=== PATIENT | female | born 1955 | race Caucasian/White ===

== ENCOUNTER → 2017-10-20 | Outpatient (CLI) | payer BC | LOC: CIMAGING 13:50 | PROVIDERS: ATTEND Radiology Diagnostic Radiology | DX: Z01.818 Encounter for other preprocedural examination (principal) | CPT/HCPCS: 70200-PO ==

== ENCOUNTER → 2017-12-02 | Outpatient (CLI) | payer BC | LOC: FIMAGING 10:21 | PROVIDERS: ATTEND Internal Medicine | DX: K76.0 Fatty (change of) liver, not elsewhere classified (principal); K83.8 Other specified diseases of biliary tract; M51.36 Other intervertebral disc degeneration, lumbar region ==

== ENCOUNTER 2017-12-21 07:30 | Inpatient (IN) | payer BC, OTHER ==
--- NOTE | 2017-12-21 06:42 | PDHPUP ---
History & Physical Update H&P update statement: This history and physical update is based on an assessment of the patient which was completed after admission or registration (within 24 hours), but prior to the surgery/procedure. H&P update: H&P reviewed & patient examined, no change in patient's condition since H&P completed
[2017-12-21] MEDS ORDERED: ACETAMINOPHEN 500 MG TAB PO ONE (10:25)
[2017-12-21] MEDS ORDERED: ceFAZolin 2 GM/SWFI 2 GM/20 ML SYR IVP ONE (10:25)
[2017-12-21] MEDS ORDERED: GABAPENTIN 300 MG CAP PO ONE (10:25)
[2017-12-21] MEDS ORDERED: LR 1,000 ML IV ONE (10:32)
[2017-12-21] MEDS ORDERED: LIDOCAINE 1% 2 ML INJ ID PRN (10:32)
[2017-12-21] MEDS ORDERED: BACITRACIN 50,000 UNITS/10 ML SYR IRR ONE (11:26)
[2017-12-21] MEDS ORDERED: THROMBIN (BOVINE) 5,000 UNIT VIAL TP ONE (11:26)
[2017-12-21] MEDS ORDERED: BUPIVACAINE 0.25% 30 ML SDV ONE (11:26)
--- NOTE | 2017-12-21 11:31 | PDANEPAE ---
ANE History of Present Illness Chronic back pain with lumbar stenosis. ANE Past Medical History - Cardiovascular History Hx Hypertension: No Hx Arrhythmias: No Hx Chest Pain: No Hx Coronary Artery / Peripheral Vascular Disease: No Hx CHF / Valvular Disease: No Hx Palpitations: No Cardiovascular History Comment: hyperlipidemia - Pulmonary History Hx COPD: No Hx Asthma/Reactive Airway Disease: No Hx Recent Upper Respiratory Infection: No Hx Oxygen in Use at Home: No Hx Sleep Apnea: No Sleep Apnea Screening Result - Last Documented: Negative Pulmonary History Comment: negative sleep study 2015 - Neurologic History Hx Cerebrovascular Accident: No Hx Seizures: No Hx Dementia: No - Endocrine History Endocrine History Comment: hypothyroid - Renal History Hx Renal Disorders: No - Liver History Hx Hepatic Disorders: Yes Hepatic History Comment: elevated liver enzymes - Neurological & Psychiatric Hx Hx Neurological and Psychiatric Disorders: Yes Neurological / Psychiatric History Comment: anxiety, bi-polar,depression,PTSD - Cancer History Hx Cancer: Yes Cancer History Comment: skin ca SQ squamous cell - Congenital Disorder History Hx Congenital Disorders: No - GI History Hx Gastrointestinal Disorders: No Gastrointestinal History Comment: ulcers, spastic colon - Other Health History Other Health History: chronic pain, degenerative disc disease - Chronic Pain History Chronic Pain: Yes - Surgical History Prior Surgeries: appendectomy,. cholecystectomy. . right shoulder arthroscopy. left menisectomy. hemorroidectomy ANE Review of Systems Review of Systems: - Exercise capacity METS (RN): 4 METS ANE Patient History - Allergies Allergies/Adverse Reactions: morphine Allergy (Verified 11/29/17 15:54) Nausea Penicillins Allergy (Verified 11/29/17 15:54) Rash - Home Medications Home Medications: Aspirin EC [Aspirin EC 81 mg (*)] 81 mg PO DAILY 11/29/17 [Last Taken 12/14/17] Atorvastatin Calcium [Lipitor 10 mg (*)] 10 mg PO DAILY 11/29/17 [Last Taken 06:00] Levothyroxine [Synthroid 50 mcg (*)] 50 mcg PO DAILY06 11/29/17 [Last Taken 06:00] Multivitamins [Multivitamin (*)] 1 each PO DAILY 11/29/17 [Last Taken 12/14/17] OLANZapine [Zyprexa] 5 mg PO DAILY 11/29/17 [Last Taken 12/21/17 06:00] PARoxetine HCL [Paxil 30mg (*)] 30 mg PO DAILY 11/29/17 [Last Taken 12/21/17 06: 00] clonazePAM [Klonopin] 2 mg PO DAILY 11/29/17 [Last Taken 12/21/17 06:00] lamoTRIgine [Lamictal] 75 mg PO DAILY 11/29/17 [Last Taken 12/21/17 06:00] oxyCODONE IR [Oxycodone Ir (*)] 30 mg PO DAILY 11/29/17 [Last Taken 12/21/17 06: 00] - NPO status NPO Since - Liquids (Date): 12/21/17 NPO Since - Liquids (Time): 06:00 NPO Since - Solids (Date): 12/20/17 NPO Since - Solids (Time): 18:00 - Smoking Hx Smoking Status: Current every day smoker - Family Anes Hx Family Hx Anesthesia Complications: none ANE Labs/Vital Signs - Vital Signs Blood Pressure: 114/64 Heart Rate: 69 Respiratory Rate: 16 O2 Sat (%): 89 Height: 162.56 cm Weight: 70.307 kg ANE Physical Exam - Airway Neck exam: FROM Mallampati Score: Class 3 Mouth exam: normal dental/mouth exam - Pulmonary Pulmonary: no respiratory distress - Cardiovascular Cardiovascular: regular rate and rhythym - ASA Status ASA Status: III ANE Anesthesia Plan Anesthesia Plan: general endotracheal anesthesia
[2017-12-21] MEDS ORDERED: MIDAZOLAM 2 MG/2 ML VIAL IVP ONE (11:32)
[2017-12-21] MEDS ORDERED: MAGNESIUM HYDROXIDE 30 ML UDCUP PO PRN (11:34)
[2017-12-21] MEDS ORDERED: ONDANSETRON 4 MG/2 ML VIAL IVP PRN ×2 (11:34→17:02)
[2017-12-21] MEDS ORDERED: BISACODYL 10 MG SUPP PR PRN (11:34)
[2017-12-21] MEDS ORDERED: HYDROmorphONE/DILAUDID 1 MG/ML INJ IVP PRN (11:34)
[2017-12-21] MEDS ORDERED: ONDANSETRON DISINTEGRATING 4 MG TAB PO PRN (11:34)
[2017-12-21] MEDS ORDERED: LACTULOSE 20 GM/30 ML UDCUP PO PRN (11:34)
[2017-12-21] MEDS ORDERED: NALOXONE HCL 0.4 MG/ML INJ IVP PRN ×3 (11:34→17:42)
[2017-12-21] MEDS ORDERED: HYDROmorphONE/DILAUDID 6 MG/30 ML PCA IV PRN (11:34)
[2017-12-21] MEDS ORDERED: diphenhydrAMINE 25 MG CAP PO PRN (11:34)
[2017-12-21] MEDS ORDERED: HYDROmorphONE/DILAUDID 2 MG/ML INJ ONE ×2 (11:37→17:35)
[2017-12-21] MEDS ORDERED: REMIFENTANIL HCL 1 MG VIAL ONE ×2 (11:37→14:36)
[2017-12-21] MEDS ORDERED: PROPOFOL 200 MG/20 ML VIAL ONE ×2 (11:38→16:25)
[2017-12-21] MEDS ORDERED: PROPOFOL/EMULSION 500 MG/50 ML BOTTLE IV ONE ×2 (11:38→14:36)
[2017-12-21] MEDS ORDERED: LIDOCAINE 2% 5 ML SDV ONE (11:39)
[2017-12-21] MEDS ORDERED: NS W/ 20 KCl/L 1,000 ML IV SCH (11:45)
[2017-12-21] MEDS ORDERED: fentaNYL 100 MCG/2 ML INJ ONE ×3 (11:48→19:28)
[2017-12-21] MEDS ORDERED: ONDANSETRON 4 MG/2 ML VIAL ONE (12:49)
[2017-12-21] MEDS ORDERED: DEXAMETHASONE 4 MG/ML VIAL ONE (12:49)
[2017-12-21] MEDS ORDERED: PHENYLEPHRINE HCL 100 MCG/ML SYR ONE (12:55)
--- NOTE | 2017-12-21 13:08 | PDMN ---
Medical Necessity Medical necessity: S820 lumbar fusion 3 days - INPT only list : TLIF L4/5,L5 /S1
[2017-12-21] MEDS ORDERED: ceFAZolin 2 GM/DEXTROSE 100 ML IV SCH (14:00)
[2017-12-21] MEDS ORDERED: ceFAZolin 1 GM VIAL ONE ×2 (16:20)
[2017-12-21] MEDS ORDERED: PROMETHAZINE HCL 25 MG/ML INJ IVP PRN (17:02)
--- NOTE | 2017-12-21 17:08 | SOAPPROG ---
SOAP Progress Note Assessment/Plan: Post Op Visit: S: Awake and alert. Pt with expected lower back pain O: AFVSS/PERRLA/EOMI no droop CN 2-12 grossly intact +lt touch 5/5 BUE/BLE = CDI MARIAH in place A/P: 62 yo female that is s/p TLIF at L4/5 and L5/S1 -orders in place -awake and alert -brace when out of bed -[employer] -pt seen by Dr Torres -call with any questions or concerns 12/21/17 17:05 Objective: Vital Signs Temp Pulse Resp BP Pulse Ox 37 C 69 16 114/64 89 L 12/21/17 11:04 12/21/17 11:54 12/21/17 11:54 12/21/17 11:54 12/21/17 11:54 ICD10 Worksheet Patient Problems: Problems Problem Status Onset Arthrodesis status Acute Lumbago Acute Lumbar radicular pain Acute Lumbar stenosis Acute - ICD10 Problem Qualifiers (1) Lumbar stenosis (2) Lumbar radicular pain (3) Lumbago (4) Arthrodesis status
--- NOTE | 2017-12-21 17:35 | POSTANESTH ---
Post Anesthetic Evaluation Cardiovascular Status: Normal, Stable Respiratory Status: Normal, Stable Level of Consciousness/Mental Status: Can Participate in Eval Pain Control: Inadeq, Add Tx Required (giving fentanyl and dilaudid) Nausea/Vomiting Control: Adequate, Prn Tx Ordered Complications Possibly Related to Anesthesia: None Noted
[2017-12-21] MEDS: fentaNYL 100 MCG/2 ML INJ IVP PRN ×5 (17:36→21:45)
[2017-12-21] MEDS: HYDROmorphONE/DILAUDID 2 MG/ML INJ IVP PRN ×2 (17:38→17:48)
[2017-12-21] MEDS ORDERED: DIAZEPAM 5 MG/ML 1 ML SYR IVP PRN ×2 (17:42→18:35)
--- NOTE | 2017-12-21 18:12 | GOP ---
[f rep st] OPERATIVE REPORT DATE OF OPERATION: 12/21/2017 SURGEON: Gaston Torres MD MANAGER OF LEARNING: Kyle Velazquez PA-C. PREOPERATIVE DIAGNOSIS: 1. Lumbar spondylosis with severe disk degenerative disease L4-5, L5-S1. 2. Bilateral lumbosacral radiculopathy with left greater than right pain. 3. Severe left foraminal stenosis L5-S1. 4. Severe right foraminal stenosis, L4-5. 5. Bilateral recess stenosis, L4-5. POSTOPERATIVE DIAGNOSIS: 1. Lumbar spondylosis with severe disk degenerative disease L4-5, L5-S1. 2. Bilateral lumbosacral radiculopathy with left greater than right pain. 3. Severe left foraminal stenosis L5-S1. 4. Severe right foraminal stenosis, L4-5. 5. Bilateral recess stenosis, L4-5. PROCEDURE PERFORMED: Posterior lateral and intervertebral arthrodesis, L4-5, L5-S1 (12466, 21152); p lacement of biomechanical intervertebral device, L4-5, L5-S1 (91541 x2); spinal stereotaxy; posterior segmental instrumentation L4, L5, S1; same incision bone graft harvest; microscope. FINDINGS: ESTIMATED BLOOD LOSS: 400 cc. INDICATIONS: The patient is a middle-aged woman who has a long history of problems in her lower back and radiating pain in the leg whose MRI of the lumbar spine demonstrated really remarkable left-side d foraminal stenosis at L5-S1 and right-sided foraminal stenosis at L4-5 with bilateral recess stenos is at L4-5. There are terrible Modic changes in the L4-5, L5-S1 endplates and even sclerosis through out the L4 vertebral body. I suggested a 2-level fusion. I felt the fusion was necessary because of the need to remove the facet joints at L4-5 and L5-S1 to elevate and decompress the exiting nerve ro ot as well as the desire to elevate the intervertebral spaces at those levels to open the foramen for the exiting nerves. The risk of screw and hardware malposition was discussed. She knew there was a risk of pseudoarthrosis, adjacent segment disease, additional spine surgery in the future. She knew there was a chance that surgery would fail to give her any relief and that the likelihood of improve ment of leg symptoms is greater than the likelihood of improvement of low back pain, but it is my hop e that we could achieve some results with both. She knew there was risk of CSF leak and nerve injury , and she wanted to proceed despite these risks. DESCRIPTION OF PROCEDURE: The patient was taken to the operating room, placed in the supine position . General anesthesia was begun. She was flipped prone onto the Marshall table. Care was taken to pa d all points of contact. Her back was sterilely prepped and draped in the usual fashion. We made a 7 cm incision above the L4-5 and L5-S1 interspaces. The subcutaneous tissue was dissected using Bovi e cautery down to the fascia. A subperiosteal dissection was made down the inferior L3 lamina. The L4,L5, S1 lamina was exposed. We shot a localizing x-ray. We denuded the hypertrophic L4-5, L5-S1 f acets. We attached the Stealth reference frame to the L5 spinous process, performed an O-arm spin an d using frameless Stealth stereotaxy, we placed pedicle screws bilaterally at S1. They were bicortic al. 30 mm screws were used at this level. We put 35 mm screws at S1. At L5, there was terrible scl erosis of the vertebral body itself, and it was extremely hard, sort of cortical bone, and in this co ntext, I chose to use a pedicle finder to make the charter pilot holes, which were then tapped with the power tap into the L5 vertebral body, and I selected shorter screws for this level because I saw no need t o continue advancing through the very hard cortical bone ventrally. We did choose 30 mm screws, and there was excellent bony purchase. At L4, we were able to use 6.5 x 40 mm screws. We performed an O -arm spin, and all the hardware was in excellent position. There was no evidence of breach of the pe dicle either inferiorly, medially or laterally or rostrally. They all stimulated at acceptable level s. We took 60 mm rods, placed them down over the tulips of the screws, distracted on the right at L4 -5 and on the left at L5-S1 and locked them in place. An x-ray was taken. I was very happy with red uction of the degenerative scoliosis and degenerative tilt at each level. We then harvested the L5 s pinous process and the inferior most portion of the L4 spinous process. We preserved the L3-4 inters pinous and supraspinous ligament. We then performed a complete left-sided facetectomy at L5-S1, a ri ght facetectomy at L4-5. We performed bilateral decompressions at L4-5. We then turned our attentio n under the microscope to the left L5-S1 foramen where we identified the traversing S1 root and the e xiting L5 root. We decompressed this completely on the left-hand side and worked our way up adjacent to the L5 pedicle into the lateral recess on the left side at L4-5 where there was indeed severe yanique nosis for the traversing L5 root at that level. On the right-hand side, we did likewise, identified the exiting L4 nerve and completely decompressing it by removing the complete facet joint on the righ t side. We swept the S1 nerve from the left-hand side medially, incised the L5-S1 disk, removed the disk and the cartilaginous endplates. We roughened the subchondral bone to create arthrodesis. We d id likewise from the right side at L4-5 where we incised the disk, removed the disk from the cartilag inous endplates. We inserted the trial device for the elevate cages at both levels, shot an x-ray. Looked at the length that we wanted to choose, and I thought a 23 mm device would be appropriate. We chose 7 x 23 mm devices in each location. We placed bone morphogenic protein. 4.0 mg were used dur ing the surgery. Of this, 3 mg went into the disk spaces at L4-5, L5-S1, with about 1.5 mg in each d isk space and bone autograft. We inserted each of the devices under fluoroscopic guidance and then e xpanded them and checked their positioning with fluoroscopy. I was very happy with the elevation of the vertebral bodies as well as the slight introduction of lordosis at L4-5, 5-1 where there was none prior. We decorticated all the posterolateral bone bilaterally to create arthrodesis and placed the remaining bone autograft that was harvested from the laminectomy as well as the BMP posterolaterally . A subfascial drain was placed. We then closed the incision in multiple layers using Vicryl suture . Steri-Strips were applied to the skin. The patient was reversed from anesthesia, extubated, and t ransferred to the recovery room in stable condition. COMPLICATIONS: None. INSTRUMENTATION USE: We set using Medtronic Solara 5.5 mm system with a 60 mm titanium harrison bilateral ly. We used 40 mm screws at 4, 30 mm screws at 5, 35 mm screws at S1. These were chosen based upon intraoperative 3D imaging. /[id number]/MODL
[2017-12-21] MEDS ORDERED: DIAZEPAM 5 MG/ML 1 ML SYR ONE (18:19)
[2017-12-21] MEDS ORDERED: oxyCODONE IR 5 MG TAB ONE ×2 (18:58→19:28)
[2017-12-21] MEDS: oxyCODONE IR 5 MG TAB PO PRN ×3 (18:59→23:50)
[2017-12-21] MEDS: ACETAMINOPHEN 500 MG TAB PO SCH ×2 (22:09→22:27)
[2017-12-21] MEDS: HYDROCODONE/APAP 5/325 TAB PO PRN (22:26)
[2017-12-21] MEDS: SENNOSIDES/DOCUSATE SODIUM TAB PO SCH (22:27)
[2017-12-21] MEDS: FAMOTIDINE 20 MG TAB PO SCH (22:27)
[2017-12-21] MEDS: GABAPENTIN 300 MG CAP PO SCH ×2 (22:27)
[2017-12-21] MEDS: ceFAZolin 2 GM/SWFI 2 GM/20 ML SYR IVP SCH (23:49)
[2017-12-21] MEDS: METHOCARBAMOL 750 MG TAB PO PRN (23:52)
[2017-12-22] MEDS: HYDROCODONE/APAP 5/325 TAB PO PRN (03:39)
[2017-12-22] MEDS: oxyCODONE IR 5 MG TAB PO PRN ×4 (03:47→21:17)
[2017-12-22 04:56] LABS: PLATELET COUNT 79 10^3/uL (150-400)
[2017-12-22] MEDS: LEVOTHYROXINE 50 MCG TAB PO SCH (05:18)
[2017-12-22] MEDS: ACETAMINOPHEN 500 MG TAB PO SCH ×3 (05:19→21:16)
[2017-12-22] MEDS: GABAPENTIN 300 MG CAP PO SCH ×3 (05:20→21:17)
[2017-12-22] MEDS: ceFAZolin 2 GM/SWFI 2 GM/20 ML SYR IVP SCH (05:25)
[2017-12-22 05:50] LABS: PLATELET COUNT 104 10^3/uL (150-400)
--- NOTE | 2017-12-22 08:07 | NEUSURGPN ---
Date of Surgery: 12/21/17 Post Op Day: 1 Assessment/Plan: Assessment: 62 yo female that is s/p TLIF at L4/5 and L5/S1 POD #1 Plan: -s/p TLIF at L4/5 and L5/S1: pt with expected lower back pain, legs feel better -post op xrays pending -brace when out of bed -PT/OT ordered -working on pain management -MARIAH in place -pt understands and agrees -pt is floor status-awaiting 3N bed -pt seen by Dr Torres -call with any questions or concerns Subjective: Awake and alert. NAD. Eating/drinking and voiding. No f/c/n/v/d. Objective: AFVSS/PERRLA/EOMI no droop CN 2-12 grossly intact +lt touch 5/5 BUE/BLE = CDI MARIAH in place Neuro Check Frequency: per routine Urinary Catheter in Place: No Catheter Insertion Date: 12/21/17 - Physician Discussed Patient with : Brian Patient Seen by : Brian Neurosurgery Physical Exam - Vitals, I&O, Labs I and O 12/21/17 12/22/17 12/23/17 05:59 05:59 05:59 Intake Total 5159 14 Output Total 3400 50 Balance 1759 -36 Weight 70.307 kg Intake: Oral (ml) 1650 IV Intake (ml) 3000 IV Infused (ml) 509 14 HYDROmorphone HCL See 14 Protocol IV PRN PRN Rx#: [id number] NS W/ 20 KCl/L 1,000 ml @ 509 75 mls/hr IV CONT BEVERLY Rx #:[id number] Output: Urine (ml) 2575 Catheter 2575 Estimated Blood Loss (ml) 400 MARIAH Drain Output (ml) 425 50 #1 Posterior Back Marshall 425 50 Coronel Other: Intake Quantity Yes Sufficient Vital Signs Temp Pulse Resp BP Pulse Ox 36.9 C 85 16 104/58 L 95 12/22/17 07:34 12/22/17 07:34 12/22/17 07:34 12/22/17 07:34 12/22/17 07:34 Laboratory Results 12/22/17 05:40 12/22/17 05:40 ICD10 Worksheet Patient Problems: Problems Problem Status Onset Arthrodesis status Acute Lumbago Acute Lumbar radicular pain Acute Lumbar stenosis Acute - ICD10 Problem Qualifiers (1) Lumbar stenosis (2) Lumbar radicular pain (3) Lumbago (4) Arthrodesis status
[2017-12-22] MEDS ORDERED: HYDROmorphone HCL/NS 0.5 MG/ML SYR IVP PRN (08:30)
[2017-12-22] MEDS ORDERED: NON-FORMULARY NEW DRUG (Clonazepam [Klonopin] 2 MG) PO SCH (09:00)
[2017-12-22] MEDS ORDERED: LAMOTRIGINE 75 MG PO SCH (09:00)
--- NOTE | 2017-12-22 09:31 | ASMTCASEMG ---
Living Arrangements What is your living Answers: Alone arrangement? Who do you live with? Type Of Residence What kind of residence do Answers: Apartment you live in? Discharge Plan Comments Coordination Status Comments Notes: Patient is a 62yo female who was admitted for L4/5 and L5/S1 surgery. Patient is post op 1 day and will need a brace when out of bed. PT/OT have been ordered. D/C plan TBD. CM will follow. Date Signed: 12/22/2017 09:30 AM Electronically Signed By:Marta Robertson LCSW
[2017-12-22] MEDS: lamoTRIgine 25 MG TAB PO SCH (10:11)
[2017-12-22] MEDS: SENNOSIDES/DOCUSATE SODIUM TAB PO SCH ×2 (10:12→21:17)
[2017-12-22] MEDS: METHOCARBAMOL 750 MG TAB PO PRN ×3 (10:12→21:17)
[2017-12-22] MEDS: clonazePAM 1 MG TAB PO SCH (10:12)
[2017-12-22] MEDS: FAMOTIDINE 20 MG TAB PO SCH ×2 (10:12→21:17)
[2017-12-22] MEDS: ATORVASTATIN CALCIUM 10 MG TAB PO SCH (10:14)
[2017-12-22] MEDS: OLANZapine 5 MG TAB PO SCH (11:13)
[2017-12-22] MEDS: morphINE SR 15 MG TAB PO SCH ×2 (14:37→21:17)
[2017-12-22] MEDS: POLYETHYLENE GLYCOL 3350 17 GM PKT PO PRN (21:16)
[2017-12-23] MEDS: oxyCODONE IR 5 MG TAB PO PRN ×4 (02:17→23:46)
[2017-12-23] MEDS: ACETAMINOPHEN 500 MG TAB PO SCH ×3 (05:04→21:34)
[2017-12-23] MEDS: LEVOTHYROXINE 50 MCG TAB PO SCH (05:05)
[2017-12-23] MEDS: METHOCARBAMOL 750 MG TAB PO PRN ×2 (05:05→11:53)
[2017-12-23] MEDS: GABAPENTIN 300 MG CAP PO SCH ×3 (05:05→21:34)
--- NOTE | 2017-12-23 08:05 | NEUSURGPN ---
Date of Surgery: 12/21/17 Post Op Day: 2 Assessment/Plan: Assessment: 62 yo female that is s/p TLIF at L4/5 and L5/S1 POD #2 Plan: -s/p TLIF at L4/5 and L5/S1: pt with expected lower back pain, legs feel better -post op xrays stable hardware -brace when out of bed -PT/OT -working on pain management -MARIAH removed yesterday -patient low grade temp, mild increase in wbc to 10. Encourgaed IS use every hour. Will check UA, CXR and blood cultures and consider hospitalist consult -pt seen by Dr Torres -call with any questions or concerns Subjective: Patient working on pain control Objective: AxO x3 no droop CN 2-12 grossly intact +lt touch 5/5 BUE/BLE = Dressing CDI Neuro Check Frequency: per routine Urinary Catheter in Place: No Catheter Insertion Date: 12/21/17 - Physician Discussed Patient with : Brian Patient Seen by : Brian Neurosurgery Physical Exam - Vitals, I&O, Labs I and O 12/22/17 12/23/17 12/24/17 05:59 05:59 05:59 Intake Total 5159 514 300 Output Total 3400 50 Balance 1759 464 300 Weight 70.307 kg Intake: Oral (ml) 1650 500 300 IV Intake (ml) 3000 IV Infused (ml) 509 14 HYDROmorphone HCL See 14 Protocol IV PRN PRN Rx#: [id number] NS W/ 20 KCl/L 1,000 ml @ 509 75 mls/hr IV CONT BEVERLY Rx #:[id number] Output: Urine (ml) 2575 Catheter 2575 Estimated Blood Loss (ml) 400 MARIAH Drain Output (ml) 425 50 #1 Posterior Back Marshall 425 50 Coronel Other: Intake Quantity Yes Yes Yes Sufficient Number of Voids Toilet 1 1 Vital Signs Temp Pulse Resp BP Pulse Ox 37.3 C 99 16 96/62 L 90 L 12/23/17 07:36 12/23/17 07:36 12/23/17 07:36 12/23/17 07:36 12/23/17 07:36 Laboratory Results 12/22/17 05:40 12/22/17 05:40 ICD10 Worksheet Patient Problems: Problems Problem Status Onset Arthrodesis status Acute Lumbago Acute Lumbar radicular pain Acute Lumbar stenosis Acute
[2017-12-23] MEDS: lamoTRIgine 25 MG TAB PO SCH (08:17)
[2017-12-23] MEDS: SENNOSIDES/DOCUSATE SODIUM TAB PO SCH ×2 (08:17→21:34)
[2017-12-23] MEDS: ATORVASTATIN CALCIUM 10 MG TAB PO SCH (08:17)
[2017-12-23] MEDS: FAMOTIDINE 20 MG TAB PO SCH ×2 (08:17→21:34)
[2017-12-23] MEDS: morphINE SR 15 MG TAB PO SCH ×3 (08:18→21:34)
[2017-12-23] MEDS: clonazePAM 1 MG TAB PO SCH (08:18)
[2017-12-23] MEDS: OLANZapine 5 MG TAB PO SCH (08:18)
[2017-12-23] MEDS: DIAZEPAM 5 MG TAB PO PRN ×2 (17:40→23:46)
[2017-12-24] MEDS: HYDROCODONE/APAP 5/325 TAB PO PRN (02:42)
[2017-12-24] MEDS: METHOCARBAMOL 750 MG TAB PO PRN ×2 (02:43→11:31)
[2017-12-24] MEDS: oxyCODONE IR 5 MG TAB PO PRN ×4 (03:52→22:04)
[2017-12-24] MEDS: GABAPENTIN 300 MG CAP PO SCH ×3 (06:07→22:02)
[2017-12-24] MEDS: ACETAMINOPHEN 500 MG TAB PO SCH ×3 (06:07→22:02)
[2017-12-24] MEDS: LEVOTHYROXINE 50 MCG TAB PO SCH (06:07)
[2017-12-24] MEDS: DIAZEPAM 5 MG TAB PO PRN ×3 (06:07→22:02)
[2017-12-24] MEDS: ENOXAPARIN 40 MG/0.4 ML SYR SC SCH (08:44)
[2017-12-24] MEDS: OLANZapine 5 MG TAB PO SCH (08:45)
[2017-12-24] MEDS: POLYETHYLENE GLYCOL 3350 17 GM PKT PO PRN (08:45)
[2017-12-24] MEDS: clonazePAM 1 MG TAB PO SCH (08:45)
[2017-12-24] MEDS: SENNOSIDES/DOCUSATE SODIUM TAB PO SCH ×2 (08:45→22:04)
[2017-12-24] MEDS: FAMOTIDINE 20 MG TAB PO SCH ×2 (08:45→22:02)
[2017-12-24] MEDS: ATORVASTATIN CALCIUM 10 MG TAB PO SCH (08:45)
[2017-12-24] MEDS: morphINE SR 15 MG TAB PO SCH ×3 (08:46→22:02)
[2017-12-24] MEDS: lamoTRIgine 25 MG TAB PO SCH (08:46)
--- NOTE | 2017-12-24 10:37 | NEUSURGPN ---
Date of Surgery: 12/21/17 Post Op Day: 3 Assessment/Plan: Assessment: 62 yo female that is s/p TLIF at L4/5 and L5/S1 POD #3 Plan: -pain control. Will increase Oxycodone to 10-15 mg every 4 hours -post op xrays stable hardware -brace when out of bed -PT/OT -MARIAH removed on 12/22 -patient low grade temp, mild increase in wbc to 10. Encourgaed IS use every hour. Blood cultures pending. CXR normal. UA negative -work on weaning off of supplemental oxygen -dispo: hopeful for home tomorrow -call with any questions or concerns Subjective: Having localized back pain, would like to have improved pain control. Experiencing posterior thigh pain. Objective: Awake. Alert. PERRL. EOMI Following commands Strength full at 5/5 Sensation intact Sitting in bedside chair Catheter Insertion Date: 12/21/17 - Physician Discussed Patient with : Brian Neurosurgery Physical Exam - Vitals, I&O, Labs I and O 12/23/17 12/24/17 12/25/17 05:59 05:59 05:59 Intake Total 514 2250 400 Output Total 50 1300 Balance 464 950 400 Intake: Oral (ml) 500 2250 400 IV Infused (ml) 14 HYDROmorphone HCL See 14 Protocol IV PRN PRN Rx#: [id number] Output: Urine (ml) 1300 Toilet 1300 MARIAH Drain Output (ml) 50 #1 Posterior Back Marshall 50 Coronel Other: Intake Quantity Yes Yes Sufficient Number of Voids Toilet 1 1 1 Vital Signs Temp Pulse Resp BP Pulse Ox 37.4 C 104 H 16 102/67 92 12/24/17 07:25 12/24/17 07:25 12/24/17 07:25 12/24/17 07:25 12/24/17 07:25 Laboratory Results 12/22/17 05:40 12/22/17 05:40 ICD10 Worksheet Patient Problems: Problems Problem Status Onset Arthrodesis status Acute Lumbago Acute Lumbar radicular pain Acute Lumbar stenosis Acute
[2017-12-25] MEDS: ACETAMINOPHEN 500 MG TAB PO SCH ×3 (05:44→21:00)
[2017-12-25] MEDS: GABAPENTIN 300 MG CAP PO SCH ×3 (05:44→21:02)
[2017-12-25] MEDS: LEVOTHYROXINE 50 MCG TAB PO SCH (05:44)
[2017-12-25] MEDS: oxyCODONE IR 5 MG TAB PO PRN ×4 (05:45→21:03)
[2017-12-25] MEDS: DIAZEPAM 5 MG TAB PO PRN ×2 (05:45→14:43)
[2017-12-25] MEDS: OLANZapine 5 MG TAB PO SCH (08:28)
[2017-12-25] MEDS: METHOCARBAMOL 750 MG TAB PO PRN ×2 (08:28→21:02)
[2017-12-25] MEDS: ATORVASTATIN CALCIUM 10 MG TAB PO SCH (08:28)
[2017-12-25] MEDS: SENNOSIDES/DOCUSATE SODIUM TAB PO SCH (08:28)
[2017-12-25] MEDS: FAMOTIDINE 20 MG TAB PO SCH ×2 (08:28→21:03)
[2017-12-25] MEDS: lamoTRIgine 25 MG TAB PO SCH (08:28)
[2017-12-25] MEDS: clonazePAM 1 MG TAB PO SCH (08:28)
[2017-12-25] MEDS: ENOXAPARIN 40 MG/0.4 ML SYR SC SCH (08:28)
--- NOTE | 2017-12-25 08:36 | NEUSURGPN ---
Date of Surgery: 12/21/17 Post Op Day: 4 Assessment/Plan: Assessment: 62 yo female that is s/p TLIF at L4/5 and L5/S1 POD #3 Plan: - developed left first 3 digit numbness this morning, no weakness. Monitor for now. -pain control. Improved on increased dose of Oxycodone. Has not taken last two doses of MS Contin. Will discontinue MS Contin and continue with Oxycodone , Valium, Robaxin -post op xrays stable hardware -brace when out of bed -PT/OT -MARIAH removed on 12/22 -patient low grade temp- improved. Encouraged IS use every hour. Blood cultures NGTD, CXR normal. UA negative -work on weaning off of supplemental oxygen, may need home oxygen -dispo: hopeful for home this afternoon -call with any questions or concerns Subjective: Developed left first 3 digit numbness this morning. Objective: Awake. Alert. PERRL. EOMI Facial expression symmetrical Muscle strength full UE and LE at 5/5 Sensation intact Catheter Insertion Date: 12/21/17 Neurosurgery Physical Exam - Vitals, I&O, Labs I and O 12/24/17 12/25/17 12/26/17 05:59 05:59 05:59 Intake Total 2250 2600 Output Total 1300 300 Balance 950 2300 Intake: Oral (ml) 2250 2600 Output: Urine (ml) 1300 300 Toilet 1300 300 Other: Intake Quantity Yes Sufficient Number of Voids Toilet 1 1 Vital Signs Temp Pulse Resp BP Pulse Ox 36.7 C 94 18 114/71 94 12/25/17 07:19 12/25/17 07:19 12/25/17 07:19 12/25/17 07:19 12/25/17 07:19 Laboratory Results 12/22/17 05:40 12/24/17 12:09 ICD10 Worksheet Patient Problems: Problems Problem Status Onset Arthrodesis status Acute Lumbago Acute Lumbar radicular pain Acute Lumbar stenosis Acute
--- NOTE | 2017-12-25 12:14 | ASMTCMCOM ---
CM Note CM Note Notes: Per RN, patient could benefit from home PT/RN. I spoke wtih patient about this, and she is amenable. I sent referrals to a few agencies; because it is the weekend, I have not heard back. Likely discharge home tomorrow, Case Management will follow. Date Signed: 12/25/2017 12:14 PM Electronically Signed By:Alma Kelley RN
[2017-12-25 23:34] VITALS: O2SAT 92
[2017-12-26] MEDS: METHOCARBAMOL 750 MG TAB PO PRN ×2 (04:47→12:36)
[2017-12-26] MEDS: oxyCODONE IR 5 MG TAB PO PRN ×4 (04:47→16:29)
[2017-12-26] MEDS: ACETAMINOPHEN 500 MG TAB PO SCH ×2 (05:11→13:09)
[2017-12-26] MEDS: GABAPENTIN 300 MG CAP PO SCH ×2 (05:11→13:10)
[2017-12-26] MEDS: LEVOTHYROXINE 50 MCG TAB PO SCH (05:11)
[2017-12-26] MEDS: SENNOSIDES/DOCUSATE SODIUM TAB PO SCH ×2 (06:47→09:00)
--- NOTE | 2017-12-26 08:09 | NEUSURGPN ---
Date of Surgery: 12/21/17 Post Op Day: 5 Assessment/Plan: Assessment: 62 yo female that is s/p TLIF at L4/5 and L5/S1 POD #4 Plan: -pain control. Improved on increased dose of Oxycodone. Pain not controlled with current regimen, still requiring IV Dilaudid prn. Will restart MS Contin BID. -Ice pack to low back -Will continue to eval pain control, patient may dc later today vs tomorrow if pain remains controlled on oral medications -post op xrays stable hardware -brace when out of bed -PT/OT -patient low grade temp- improved. Encouraged IS use every hour. Blood cultures NGTD, CXR normal. UA negative -work on weaning off of supplemental oxygen, may need home oxygen -dispo: hopeful for home this afternoon vs tomorrow -patient seen by Dr Torres as well -call with any questions or concerns Subjective: Patient continues to have left hamstring and low back pain Objective: AxO x3 PERRL 5/5 BLE Sensation intact to light touch BLE Dressing CDI Neuro Check Frequency: per routine Urinary Catheter in Place: No Catheter Insertion Date: 12/21/17 - Physician Discussed Patient with : Brian Patient Seen by : Brian Neurosurgery Physical Exam - Vitals, I&O, Labs I and O 12/25/17 12/26/17 12/27/17 05:59 05:59 05:59 Intake Total 2600 700 Output Total 300 Balance 2300 700 Intake: Oral (ml) 2600 700 Output: Urine (ml) 300 Toilet 300 Other: Number of Voids Toilet 1 1 Number of Stools Incontinence 1 Toilet 1 Vital Signs Temp Pulse Resp BP Pulse Ox 37.6 C 89 16 101/68 92 12/25/17 23:33 12/25/17 23:33 12/25/17 23:33 12/25/17 23:33 12/25/17 23:33 Laboratory Results 12/22/17 05:40 12/24/17 12:09 ICD10 Worksheet Patient Problems: Problems Problem Status Onset Arthrodesis status Acute Lumbago Acute Lumbar radicular pain Acute Lumbar stenosis Acute
[2017-12-26] MEDS: clonazePAM 1 MG TAB PO SCH (08:35)
[2017-12-26] MEDS: OLANZapine 5 MG TAB PO SCH (08:35)
[2017-12-26] MEDS: FAMOTIDINE 20 MG TAB PO SCH (08:35)
[2017-12-26] MEDS: lamoTRIgine 25 MG TAB PO SCH (08:35)
[2017-12-26] MEDS: ENOXAPARIN 40 MG/0.4 ML SYR SC SCH (08:36)
[2017-12-26] MEDS: ATORVASTATIN CALCIUM 10 MG TAB PO SCH (08:36)
[2017-12-26 08:41] VITALS: BP 103/62; PULSE 86; RESP 17; TEMP 98.6
[2017-12-26] MEDS ORDERED: morphINE SR 15 MG TAB PO SCH (09:00)
--- NOTE | 2017-12-26 15:50 | PDIAF ---
- Diagnosis Code Status: Full Code - Medication Management Discharge Medications: Medications to Continue on Transfer Atorvastatin Calcium [Lipitor 10 mg (*)] 10 mg PO DAILY 11/29/17 [Last Taken 06:00] Levothyroxine [Synthroid 50 mcg (*)] 50 mcg PO DAILY06 11/29/17 [Last Taken 06:00] Multivitamins [Multivitamin (*)] 1 each PO DAILY 11/29/17 [Last Taken 12/14/17] OLANZapine [Zyprexa] 5 mg PO DAILY 11/29/17 [Last Taken 12/21/17 06:00] PARoxetine HCL [Paxil 30mg (*)] 30 mg PO DAILY 11/29/17 [Last Taken 12/21/17 06: 00] clonazePAM [Klonopin] 2 mg PO DAILY 11/29/17 [Last Taken 12/21/17 06:00] lamoTRIgine [Lamictal] 75 mg PO DAILY 11/29/17 [Last Taken 12/21/17 06:00] Acetaminophen [Tylenol ES 500 mg (*)] 1,000 mg PO Q8HRS tab 12/26/17 [Last Taken Unknown] Aspirin EC [Aspirin EC 81 mg (*)] 81 mg PO DAILY 30 Days #0 12/26/17 [Last Taken 12/14/17] Gabapentin [Neurontin 300 MG (*)] 300 mg PO Q8HRS #90 cap 12/26/17 [Last Taken Unknown] Methocarbamol [Robaxin 750 mg (*)] 750 mg PO QID PRN #90 tab 12/26/17 [Last Taken Unknown] Sennosides/Docusate Sodium [Senokot-S] 1 - 2 tab PO BID tab 12/26/17 [Last Taken Unknown] morphINE SR [Ms Contin/Oramorph 15 mg (*)] 15 mg PO BID #60 tab 12/26/17 [Last Taken Unknown] oxyCODONE IR [Oxycodone Ir (*)] 10 - 15 mg PO Q4HRS PRN #90 tab 12/26/17 [Last Taken Unknown] Discharge Medications: Refer to the Discharge Home Medication list for PRN reason. - Orders Services needed: Home Care, Physical Therapy, Occupational Therapy Home Care Face to Face: I certify that this patient was under my care and that I had the required [id number] encounter meeting the encounter requirements on the discharge day. My findings support the fact that the patient is homebound as defined in Home Care Face to Face Continued: CMS Chapter 7 Medicare Benefits Manual 30.1.1 , The condition of the patient is such that there exists a normal inability to leave home and consequently, leaving home would require a considerable and taxing effort. Diet Recommendation: no restrictions on diet Diet Texture: Regular Texture Diet Sutures/Juanjose Site: leave steri strips in place Activity/Weight Bearing Restrictions: do not lift greater than 10 pounds. No bending or twisting Equipment: wear brace when out of bed - Follow Up Care Current Providers and Referrals: Jessica Ramirez MD [Primary Care Provider] - Jay Torres MD [Medical Doctor] - follow up in 2 weeks
--- NOTE | 2017-12-26 18:11 | ASDISCHSUM ---
Discharge Information Plan Status:Home with Home Health Medically Cleared to Leave: Discharge Date:12/26/2017 05:20 PM CM D/C Disposition:Home Health Service ADT D/C Disposition:[id number] Projected Discharge Date:12/26/2017 11:00 AM Transportation at D/C: Discharge Delay Reason: Follow-Up Date:12/26/2017 11:00 AM Discharge Slot: Final Diagnosis: Placement Information Referral Type:*Home Health Care Services Referral ID:[id number] Provider Name:[facility] Address 1:[address] [address] Phone Number: Address 2: Fax Number: City:[place] Selection Factors: State:[place] Patient Contact Information Contact Name:MIKHAIL Relationship:Friend Address:[address] [place] [address] Work Phone: [facility]:[employer] Alternate Phone: [facility]/Zip Code:[place] [address] Email: Financial Information Financial Class:HMO and PPO Plans Primary Plan Desc:[employer] FEDERAL PLAN Primary Plan Number:[id number] Secondary Plan Desc:MEDICARE INPATIENT Secondary Plan Number:[id number] Assessment Information [facility] Initial CM Assessment Living Arrangements What is your living Answers: Alone arrangement? Who do you live with? Type Of Residence What kind of residence do Answers: Apartment you live in? Discharge Plan Comments Coordination Status Comments Notes: Patient is a 62yo female who was admitted for L4/5 and L5/S1 surgery. Patient is post op 1 day and will need a brace when out of bed. PT/OT have been ordered. D/C plan TBD. CM will follow. Date Signed: 12/22/2017 09:30 AM Electronically Signed By:Marta Robertson LCSW [facility] CM Progress Note CM Note CM Note Notes: Per RN, patient could benefit from home PT/RN. I spoke wtih patient about this, and she is amenable. I sent referrals to a few agencies; because it is the weekend, I have not heard back. Likely discharge home tomorrow, Case Management will follow. Date Signed: 12/25/2017 12:14 PM Electronically Signed By:Alma Kelley RN Case Management Discharge Plan Note Case Management Discharge Discharge Order Complete? Answers: Yes Patient to Obtain Answers: Independently Medications Transportation Arranged Answers: Family/Friends Faxed Final Orders Answers: Yes Agency/Facility Transfer Answers: Yes Report Printed & Faxed to Receiving Agency Family Notified Answers: Yes Notes: friend/roommate present Discharge Comments Notes: Pt dc'd home today. Met w/pt and friend/roommate, discussed dc poc. She will have [facility] PT/OT, pt said she may decline OT. [facility] able to accept; confirmed w/Joelle at this agency. Orders received late in day and faxed to [facility] after they were gone for day so unablew to confirm that they were received. Left message w/CLIFF on tomorrow that she call [facility] in AM to confirm orders received. Discussed w/RN and PA. Date Signed: 12/26/2017 06:10 PM Electronically Signed By:Leidy Schulz RN Intervention Information
== END 2017-12-26 17:20 | disposition home health service (06) | DRG 460 ==
LOC: F2N 09:28 → F3N 10:15 → F2N 21:55 → F3N 12-22 14:10
PROVIDERS: ADMIT Neurological Surgery; ATTEND Neurological Surgery
PROC: 0QB00ZZ Excision of Lumbar Vertebra, Open Approach (ICD-10-PCS; principal; 2017-12-21 11:30)
PROC: 4A10X4G Monitoring of Central Nervous Electrical Activity, Intraoperative, External Approach (ICD-10-PCS; principal; 2017-12-21 11:30)
PROC: 00NY0ZZ Release Lumbar Spinal Cord, Open Approach (ICD-10-PCS; principal; 2017-12-21 11:30)
PROC: 3E0V0GB Introduction of Recombinant Bone Morphogenetic Protein into Bones, Open Approach (ICD-10-PCS; principal; 2017-12-21 11:30)
PROC: 8E0WXBZ Computer Assisted Procedure of Trunk Region (ICD-10-PCS; principal; 2017-12-21 11:30)
PROC: 0SG30AJ Fusion of Lumbosacral Joint with Interbody Fusion Device, Posterior Approach, Anterior Column, Open Approach (ICD-10-PCS; principal; 2017-12-21 11:30)
PROC: 0SG00AJ Fusion of Lumbar Vertebral Joint with Interbody Fusion Device, Posterior Approach, Anterior Column, Open Approach (ICD-10-PCS; principal; 2017-12-21 11:30)
PROC: BR1B1ZZ Fluoroscopy of Lumbosacral Joint using Low Osmolar Contrast (ICD-10-PCS; principal; 2017-12-21 11:30)
DX: M51.17 Intervertebral disc disorders with radiculopathy, lumbosacral region (principal); M47.27 Other spondylosis with radiculopathy, lumbosacral region; M48.07 Spinal stenosis, lumbosacral region; E03.9 Hypothyroidism, unspecified; F31.9 Bipolar disorder, unspecified; F43.10 Post-traumatic stress disorder, unspecified; F41.9 Anxiety disorder, unspecified; F17.210 Nicotine dependence, cigarettes, uncomplicated; Z85.828 Personal history of other malignant neoplasm of skin
CPT/HCPCS: 97116-GP; 97161-GP; 97165-GO; 97530-GP; 97535-GO; C1713; G8978-GP-CJ; G8979-GP-CI; G8987-GO-CJ; G8988-GO-CI; J0171; J0690; J1100; J1170; J1650; J2250; J2370; J2405; J2704; J3010; J3360

== ENCOUNTER → 2018-01-06 | Outpatient (CLI) | payer BC, OTHER | LOC: FIMAGING 12:11 | PROVIDERS: ATTEND Neurological Surgery | DX: Z09 Encounter for follow-up examination after completed treatment for conditions other than malignant neoplasm (principal); Z98.1 Arthrodesis status ==

== ENCOUNTER → 2018-02-18 | Outpatient (CLI) | payer BC, OTHER | LOC: FIMAGING 11:16 | PROVIDERS: ATTEND Neurological Surgery | DX: M54.16 Radiculopathy, lumbar region (principal); Z98.1 Arthrodesis status ==

== ENCOUNTER → 2018-04-08 | Outpatient (CLI) | payer BC | LOC: FIMAGING 11:19 | PROVIDERS: ATTEND Neurological Surgery | DX: Z98.1 Arthrodesis status (principal) ==

== ENCOUNTER → 2018-07-08 | Outpatient (CLI) | payer BC | LOC: FIMAGING 14:38 | PROVIDERS: ATTEND Physician Assistant | DX: Z09 Encounter for follow-up examination after completed treatment for conditions other than malignant neoplasm (principal); Z98.1 Arthrodesis status ==

== ENCOUNTER → 2018-12-30 | Outpatient (CLI) | payer BC | LOC: FIMAGING 11:46 | PROVIDERS: ATTEND Physician Assistant | DX: Z09 Encounter for follow-up examination after completed treatment for conditions other than malignant neoplasm (principal); Z98.1 Arthrodesis status; M51.36 Other intervertebral disc degeneration, lumbar region ==